=== PATIENT | male | born 1970 | race Caucasian/White ===

== ENCOUNTER 2019-09-03 21:17 | Emergency (ER) | payer SELFPAY ==
[~2019-09-03] VITALS: Ht 172.7 cm; Wt 81.0 kg
[2019-09-03 21:25] VITALS: BP 149/96; PULSE 119; RESP 18; Ht 172.7 cm; Wt 81.0 kg
== END 2019-09-04 02:00 | disposition left against medical advice (07) ==
LOC: E/R 21:17
DX: Z53.21 Procedure and treatment not carried out due to patient leaving prior to being seen by health care provider (principal)